=== PATIENT | male | born 1980 | race Caucasian/White ===

== ENCOUNTER → 2023-07-31 | Outpatient (REF) | LOC: M SLEEP HO 10:00 | PROVIDERS: ATTEND Physician Assistant | DX: G47.33 Obstructive sleep apnea (adult) (pediatric) (principal) ==

== ENCOUNTER → 2023-11-24 | Outpatient (REF) | LOC: M PLAIMG 10:33 | PROVIDERS: ATTEND Internal Medicine | DX: R06.02 Shortness of breath (principal) ==

== ENCOUNTER → 2024-04-09 | Outpatient (REF) | LOC: M PLAIMG 12:20 | PROVIDERS: ATTEND Family Medicine | DX: M54.42 Lumbago with sciatica, left side (principal) ==

== ENCOUNTER 2024-11-18 09:59 | Day surgery (SDC) | payer OTHER ==
[~2024-11-18] VITALS: Ht 177.8 cm; Wt 91.7 kg
[~2024-11-18 09:59] MED LIST: CLAR10CA3 PO; LIDOCAINE 2% 100MG/5ML SDV (FOR ANES.) As Ordered ONE; MULT-90 PO; PRAZ1CAP PO; TRAZ-257 PO; ZOLO100T PO; propofoL 200 MG/20 ML VIAL As Ordered ONE
[2024-11-18 12:25] VITALS: BP 142/92; O2SAT 100
== END 2024-11-18 12:28 | disposition home or self-care (01) ==
LOC: M OPP 09:59
PROVIDERS: ATTEND Surgery
DX: Z12.11 Encounter for screening for malignant neoplasm of colon (principal); R19.5 Other fecal abnormalities; D12.6 Benign neoplasm of colon, unspecified; K30 Functional dyspepsia; G47.30 Sleep apnea, unspecified; Z79.899 Other long term (current) drug therapy; F17.220 Nicotine dependence, chewing tobacco, uncomplicated

== ENCOUNTER → 2025-05-19 | Outpatient (CLI) | payer OTHER ==
[~2025-05-19] MED LIST changes: -LIDOCAINE 2% 100MG/5ML SDV (FOR ANES.) As Ordered ONE; -propofoL 200 MG/20 ML VIAL As Ordered ONE
== END ==
LOC: M SLEEP 20:00
PROVIDERS: ATTEND Nurse Practitioner Family
DX: R06.83 Snoring (principal)